=== PATIENT | male | born 1960 | race Caucasian/White ===

== ENCOUNTER 2019-04-13 09:17 | Outpatient (CLI) | payer MEDICARE ==
--- NOTE | 2019-04-13 09:55 | RAD ---
Chest right RIBS 3 views Chest one view HISTORY: Chest wall pain. COMPARISON: 08/15/2018. FINDINGS: No displaced rib fracture or pneumothorax are apparent. Metallic wires project over the lat eral aspect of the right lower chest, not present on the previous exam. These do not present on previous exams. Parenchymal scarring at the lateral aspect of the right lung base has developed, with slight elevation right hemidiaphragm. Pulmonary vasculature upper limits of normal. Mild atelectasis at the left lung base. Small irregular metallic fragments just inferior to the left humeral head appear unchanged. IMPRESSION: New cerclage wires at the lateral aspect of the right lower chest and new parenchymal sca rring at the right lung base. Has there been interval trauma in addition to the surgery? No evidence of pneumothorax. No acute osseous abnormalities of the ribs demonstrated.
== END 2019-04-13 09:18 | disposition home or self-care (01) ==
LOC: MADRAD 09:17
PROVIDERS: ATTEND Family Medicine
DX: R07.81 Pleurodynia (principal)

== ENCOUNTER 2019-04-17 09:19 | Emergency (ER) | payer MEDICARE ==
[2019-04-17] MEDS ORDERED: Ketorolac Tromethamine 30 MG/ML VIAL ONE (09:59)
== END 2019-04-17 10:21 | disposition home or self-care (01) ==
LOC: MADERS 09:19
DX: K43.9 Ventral hernia without obstruction or gangrene (principal); I10 Essential (primary) hypertension; E11.9 Type 2 diabetes mellitus without complications; E78.5 Hyperlipidemia, unspecified; E78.2 Mixed hyperlipidemia; J45.909 Unspecified asthma, uncomplicated; F17.210 Nicotine dependence, cigarettes, uncomplicated
CPT/HCPCS: 96372; 99283; J1885

== ENCOUNTER 2019-04-26 16:27 | Emergency (ER) | payer MEDICARE ==
[2019-04-26] MEDS ORDERED: Acetaminophen 325 MG TAB ONE (16:51)
[2019-04-26] MEDS ORDERED: Ibuprofen 800 MG TAB ONE (16:51)
[2019-04-26] MEDS ORDERED: HYDROcodone/Acetaminophen 10/325 mg Tablet ONE (16:51)
== END 2019-04-26 17:00 | disposition home or self-care (01) ==
LOC: MADERS 16:27
DX: M79.18 Myalgia, other site (principal); E11.9 Type 2 diabetes mellitus without complications; E78.5 Hyperlipidemia, unspecified; E78.00 Pure hypercholesterolemia, unspecified; F32.9 Major depressive disorder, single episode, unspecified; I10 Essential (primary) hypertension; F17.210 Nicotine dependence, cigarettes, uncomplicated; K74.60 Unspecified cirrhosis of liver; J45.909 Unspecified asthma, uncomplicated
CPT/HCPCS: 99283

== ENCOUNTER 2020-12-24 16:28 | Emergency (ER) | payer MEDICARE ==
[2020-12-24] MEDS ORDERED: Clindamycin 150 MG CAP ONE (19:48)
== END 2020-12-24 19:56 | disposition home or self-care (01) ==
LOC: MADERS 16:28
DX: L03.115 Cellulitis of right lower limb (principal); I10 Essential (primary) hypertension; E11.9 Type 2 diabetes mellitus without complications; E78.5 Hyperlipidemia, unspecified; E78.00 Pure hypercholesterolemia, unspecified; J45.909 Unspecified asthma, uncomplicated

== ENCOUNTER 2021-03-02 09:27 | Emergency (ER) | payer MEDICARE ==
[2021-03-02] MEDS ORDERED: Mag-Al Plus 1200 MG/1200 MG/120 MG/30 ML UDCUP ONE (10:27)
[2021-03-02] MEDS ORDERED: Lidocaine Viscous Sol 2% 15 ml UD Cup ONE (10:27)
[2021-03-02 10:40] LABS: #Basophils 0.1 thou/uL (0.0-0.2); #Eosinphils 0.5 thou/uL (0.0-0.7); #Lymphocytes 2.3 thou/uL (1.20-3.40); #Monocytes 0.7 thou/uL (0.11-0.59); #Neutrophils 6.7 thou/uL (1.40-6.50); %Basophils 1.2 % (0.0-1.0); %Eosinophils 4.6 % (0.0-10.0); %Lymphocytes 22.5 % (21.0-51.0); %Monocytes 6.8 % (0.0-10.0); %Neutrophils 64.9 % (42.0-75.0); Hemoglobin 15.2 g/dL (14.0-18.0); Mean Corpuscular HGB CONC 32.5 g/dL (32.0-36.0); Mean Corpuscular Hemoglobin 28.5 pg (27.0-31.0); Mean Corpuscular Volume 87.7 fL (78.0-98.0); Mean Platelet Volume 8.4 fL (7.4-10.4); Platelet Count 220 thou/uL (130-400); RBC Distribution Width 11.9 % (11.5-14.5); Red Blood Cell (RBC) Count 5.32 mill/uL (4.70-6.10); White Blood Cell (WBC) Count 10.3 thou/uL (4.8-10.8)
[2021-03-02] MEDS ORDERED: Sodium Chloride 0.9% 500 ML ONE (10:42)
[2021-03-02] MEDS ORDERED: Ondansetron PF 4 MG/2 ML Vial ONE (10:42)
[2021-03-02 10:45] LABS: Prothrombin Time 13.1 sec (12.0-14.7)
[2021-03-02 10:52] LABS: Amphetamine Detected (NotDetected); Benzodiazepine Screen Detected (NotDetected); Cocaine Metabolite Screen Not Detected (NotDetected); Methamphetamine Detected (NotDetected); Opiate Screen Not Detected (NotDetected); Phencyclidine (PCP) Not Detected (NotDetected); THC/Cannabinoid Screen Detected (NotDetected)
[2021-03-02 10:53] LABS: Base Excess-Venous 0.2 mmol/L (-2.0 to 3.0); Bicarbonate (HCO3v) 26.7 mmol/L (22.0-28.0); CO2 Tension (PvCO2) 48.8 mmHg (42.0-51.0); Calcium, Ionized 1.26 mmol/L (1.15-1.33); Chloride 101 mmol/L (98-107); Hemoglobin - Calc 15.5 g/dL (14.0-18.0); Potassium 4.3 mmol/L (3.5-5.1); Sodium 135 mmol/L (138-145); T. Carbon Dioxide 28.2 mmol/L (22.0-28.0); vO2 Saturation-calc 65.9 % (60.0-85.0)
[2021-03-02 10:53] LABS: Barbiturates Screen Not Detected (NotDetected); Medtox Control Line Valid? VALID (VALID); Methadone Not Detected (NotDetected); Oxycodone Screen Not Detected (NotDetected); Tricyclic Screen Not Detected (NotDetected)
[2021-03-02 10:54] LABS: ALT (SGPT) 22 U/L (8-55); AST (SGOT) 15 U/L (5-34); Albumin 3.6 g/dL (3.4-4.8); Alkaline Phosphatase 78 U/L (40-110); Anion Gap 12 mmol/L (10-20); BUN (Urea Nitrogen) 21 mg/dL (8.4-25.7); Bilirubin, Total 0.3 mg/dL (0.2-1.2); Calc. Creatinine Clearance 0 mL/min (70-130); Calcium 9.8 mg/dL (7.8-10.44); Carbon Dioxide 24 mmol/L (23-31); Chloride 102 mmol/L (98-107); Globulin 3.5 g/dL (2.4-3.5); Glucose 194 mg/dL (80-115); Lipase 28 U/L (8-78); Potassium 4.3 mmol/L (3.5-5.1); Protein, Total 7.1 g/dL (5.8-8.1); Sodium 134 mmol/L (136-145)
[2021-03-02 11:01] LABS: Acetaminophen Less than 6.0 mcg/mL (10.0-30.0); Alcohol Less than 10 mg/dL (Less than 10); Magnesium 1.4 mg/dL (1.6-2.6); Salicylate Less than 8.0 mg/dL (15.0-30.0)
[2021-03-02] MEDS ORDERED: Magnesium 2 GM/50 ML BAG (IN WATER) ONE (11:13)
[2021-03-02 13:09] LABS: Troponin I 0.092 ng/mL (< 0.028)
[2021-03-02] MEDS ORDERED: Aspirin 325 MG TAB ONE (13:28)
== END 2021-03-02 15:41 | disposition short-term general hospital (02) ==
LOC: MADERS 09:27
DX: R07.2 Precordial pain (principal); R79.89 Other specified abnormal findings of blood chemistry; E83.42 Hypomagnesemia; F15.10 Other stimulant abuse, uncomplicated; E11.9 Type 2 diabetes mellitus without complications; K74.60 Unspecified cirrhosis of liver; I25.2 Old myocardial infarction; E78.5 Hyperlipidemia, unspecified; F17.210 Nicotine dependence, cigarettes, uncomplicated; Z91.19 Patient's noncompliance with other medical treatment and regimen; Z79.84 Long term (current) use of oral hypoglycemic drugs; Z79.899 Other long term (current) drug therapy
CPT/HCPCS: 36415; 71045; 80053; 80306; 80307; 82330; 82803; 83690; 83735; 83880; 84484; 85014; 85025; 85610; 93005; 96365; 96375; J2405; J3475; J7030

== ENCOUNTER 2021-04-25 23:46 | Emergency (ER) | payer MEDICARE ==
[2021-04-26 00:54] LABS: #Basophils 0.1 thou/uL (0.0-0.2); #Eosinphils 0.3 thou/uL (0.0-0.7); #Lymphocytes 1.9 thou/uL (1.20-3.40); #Monocytes 0.9 thou/uL (0.11-0.59); #Neutrophils 7.1 thou/uL (1.40-6.50); %Basophils 0.9 % (0.0-1.0); %Eosinophils 3.2 % (0.0-10.0); %Lymphocytes 18.8 % (21.0-51.0); %Monocytes 8.3 % (0.0-10.0); %Neutrophils 68.9 % (42.0-75.0); Hemoglobin 15.1 g/dL (14.0-18.0); Mean Corpuscular HGB CONC 33.2 g/dL (32.0-36.0); Mean Corpuscular Hemoglobin 29.1 pg (27.0-31.0); Mean Corpuscular Volume 87.7 fL (78.0-98.0); Mean Platelet Volume 8.5 fL (7.4-10.4); Platelet Count 185 thou/uL (130-400); RBC Distribution Width 12.3 % (11.5-14.5); Red Blood Cell (RBC) Count 5.17 mill/uL (4.70-6.10); White Blood Cell (WBC) Count 10.3 thou/uL (4.8-10.8)
[2021-04-26] MEDS ORDERED: Lorazepam 2 MG/ML VIAL ONE (00:54)
[2021-04-26] MEDS ORDERED: Aspirin Chewable 81 MG TAB ONE (00:54)
[2021-04-26] MEDS ORDERED: Nitroglycerin 2% Ointment 1 INCH/1 GM Packet ONE (00:54)
[2021-04-26 01:17] LABS: ALT (SGPT) 32 U/L (8-55); AST (SGOT) 21 U/L (5-34); Albumin 3.5 g/dL (3.4-4.8); Alkaline Phosphatase 84 U/L (40-110); Anion Gap 11 mmol/L (10-20); BUN (Urea Nitrogen) 23 mg/dL (8.4-25.7); Bilirubin, Total Less than 0.2 mg/dL (0.2-1.2); Calc. Creatinine Clearance 0 mL/min (70-130); Calcium 9.6 mg/dL (7.8-10.44); Carbon Dioxide 26 mmol/L (23-31); Chloride 105 mmol/L (98-107); Globulin 3.7 g/dL (2.4-3.5); Glucose 243 mg/dL (80-115); Protein, Total 7.2 g/dL (5.8-8.1); Sodium 138 mmol/L (136-145)
[2021-04-26 02:55] LABS: Bilirubin Negative (Negative); Blood, Urine Negative (Negative); Clarity Clear (Clear); Glucose, Urine (Dipstick) 500 mg/dL (Negative); Ketone, Urine Negative (Negative); Leukocyte Negative (Negative); Nitrite Negative (Negative); Protein, Urine (Dipstick) > or equal to 300 mg/dL (Neg-Trace); Urobilinogen 0.2 mg/dL (Less than 2)
[2021-04-26 02:56] LABS: SARS-CoV-2 NAA Rapid Test Not Detected (NotDetected)
[2021-04-26 03:05] LABS: Amphetamine Detected (NotDetected); Barbiturates Screen Not Detected (NotDetected); Benzodiazepine Screen Not Detected (NotDetected); Cocaine Metabolite Screen Not Detected (NotDetected); Methadone Not Detected (NotDetected); Methamphetamine Detected (NotDetected); Opiate Screen Not Detected (NotDetected); Oxycodone Screen Not Detected (NotDetected); Phencyclidine (PCP) Not Detected (NotDetected); THC/Cannabinoid Screen Not Detected (NotDetected); Tricyclic Screen Not Detected (NotDetected)
[2021-04-26 03:06] LABS: Medtox Control Line Valid? VALID (VALID)
[2021-04-26 03:09] LABS: Specific Gravity, Urine 1.024 (1.002-1.036)
[2021-04-26 03:17] LABS: RBC/HPF None Seen HPF (0-3); Renal Epithelial 0-3 HPF (None Seen); Squamous Epithelial None Seen HPF (0-3); WBC/HPF None Seen HPF (0-3)
== END 2021-04-26 03:54 | disposition admitted as inpatient to this hospital (09) ==
LOC: MADERS 23:46
DX: I20.0 Unstable angina (principal); R00.0 Tachycardia, unspecified; T43.625A Adverse effect of amphetamines, initial encounter; I10 Essential (primary) hypertension; E11.9 Type 2 diabetes mellitus without complications; E78.5 Hyperlipidemia, unspecified; E78.2 Mixed hyperlipidemia; J45.909 Unspecified asthma, uncomplicated; F17.210 Nicotine dependence, cigarettes, uncomplicated; I25.2 Old myocardial infarction; Z20.822 Contact with and (suspected) exposure to COVID-19; Z87.19 Personal history of other diseases of the digestive system
CPT/HCPCS: 71045; 80053; 80306; 81003; 81015; 83880; 84443; 84484; 85025; 85379; 93005; 96374; J2060; U0002

== ENCOUNTER 2022-11-30 09:34 | Emergency (ER) | payer OTHER | END 2022-11-30 10:12 | disposition home or self-care (01) | LOC: MADERS 09:34 | DX: S68.111D Complete traumatic metacarpophalangeal amputation of left index finger, subsequent encounter (principal); I10 Essential (primary) hypertension; E11.9 Type 2 diabetes mellitus without complications; E78.2 Mixed hyperlipidemia; F17.210 Nicotine dependence, cigarettes, uncomplicated; Z79.84 Long term (current) use of oral hypoglycemic drugs; Z79.899 Other long term (current) drug therapy; W22.8XXD Striking against or struck by other objects, subsequent encounter | CPT/HCPCS: 99283 ==